=== PATIENT | male | born 1995 | race Caucasian/White ===

== ENCOUNTER 2022-12-19 03:39 | Emergency (ER) | payer BC, OTHER ==
[2022-12-19 03:51] VITALS: BP 101/69; PULSE 94; RESP 18; TEMP 98.1; BMI 28.5
[2022-12-19] MEDS ORDERED: FAMOTIDINE 20 MG/50 ML IVPB 20 MG/50 ML MG IVPB ONE ×2 (03:59→04:38)
[2022-12-19] MEDS ORDERED: LACTATED RINGERS SOLUTION 1,000 ML IV STA (03:59)
[2022-12-19] MEDS ORDERED: ACETAMINOPHEN 1000 MG/100 ML BAG IVPB ONE (03:59)
[2022-12-19] MEDS ORDERED: ONDANSETRON 4 MG/2 ML VIAL IVPUSH ONE (04:00)
[2022-12-19] MEDS ORDERED: ONDANSETRON 4 MG/2 ML VIAL ONE (04:07)
[2022-12-19] MEDS ORDERED: ACETAMINOPHEN INJECTION 100 ML IVPB ONE (04:07)
[2022-12-19 04:34] LABS: HEMATOCRIT 53.2 % (35.4-49); HEMOGLOBIN 18.8 GM/dL (11.7-16.9); MCH 29.1 pg (25.7-33.7); MCHC 35.2 g/dl (32.0-35.9); MEAN CELL VOLUME 82.5 fl (80-96); MEAN PLT VOLUME 7.5 fl (7.5-11.1); PLATELET COUNT 277 10^3/uL (134-434); RBC 6.45 M/mm3 (4.00-5.60); RDW 13.2 % (11.9-15.9); WHITE BLOOD COUNT 6.8 K/mm3 (4.0-10.0)
[2022-12-19 05:00] LABS: POTASSIUM 4.7 mmol/L (3.5-5.1)
[2022-12-19] MEDS ORDERED: LACTATED RINGERS SOLUTION 1,000 ML/1,000 ML INFUS.BAG IV SCH (05:00)
[2022-12-19 05:03] LABS: ALBUMIN 4.2 g/dl (3.4-5.0); BLOOD UREA NITROGEN 18.6 mg/dL (7-18); CALCIUM 9.5 mg/dL (8.5-10.1); MAGNESIUM 1.8 mg/dL (1.8-2.4)
[2022-12-19 05:06] LABS: CREATININE 1.3 mg/dL (0.55-1.3)
[2022-12-19 05:07] LABS: TOT PROT 7.7 g/dl (6.4-8.2)
[2022-12-19 05:08] LABS: BILIRUBIN,TOTAL 1.3 mg/dL (0.2-1)
[2022-12-19 07:21] LABS: ANISOCYTOSIS 2+; MACROCYTOSIS 0
== END 2022-12-19 05:41 | disposition home or self-care (01) ==
LOC: JER 03:39
PROC: 3E033GC Introduction of Other Therapeutic Substance into Peripheral Vein, Percutaneous Approach (ICD-10-PCS; principal; 2022-12-19)
PROC: 3E033NZ Introduction of Analgesics, Hypnotics, Sedatives into Peripheral Vein, Percutaneous Approach (ICD-10-PCS; 2022-12-19)
PROC: 3E033GC Introduction of Other Therapeutic Substance into Peripheral Vein, Percutaneous Approach (ICD-10-PCS; 2022-12-19)
PROC: 3E0337Z Introduction of Electrolytic and Water Balance Substance into Peripheral Vein, Percutaneous Approach (ICD-10-PCS; 2022-12-19)
DX: R11.2 Nausea with vomiting, unspecified (principal); R19.7 Diarrhea, unspecified
CPT/HCPCS: 36415; 80053; 83615; 83690; 83735; 85025; 93005; 93010; 99284-25

== ENCOUNTER 2025-03-12 21:23 | Emergency (ER) | payer OTHER ==
[2025-03-12 21:35] VITALS: BP 145/76; PULSE 82; RESP 18; TEMP 98.2; BMI 35.2
[2025-03-12] MEDS ORDERED: KETOROLAC TROMETHAMINE 60 MG/2 ML VIAL ONE (22:13)
[2025-03-12] MEDS ORDERED: METHOCARBAMOL 500 MG TABLET ONE (22:13)
[2025-03-12] MEDS ORDERED: LIDOCAINE 4% PATCH TP ONE (22:13)
[2025-03-12] MEDS: KETOROLAC TROMETHAMINE 30 MG/1 ML VIAL IM ONE ×2 (22:20→22:30)
[2025-03-12] MEDS: LIDOCAINE 5% TOPICAL PATCH TP ONE (22:30)
[2025-03-12] MEDS: METHOCARBAMOL 750 MG TABLET PO ONE (22:31)
[2025-03-13] MEDS ORDERED: LIDOCAINE PATCH REMOVAL MC SCH (10:00)
== END 2025-03-12 22:48 | disposition home or self-care (01) ==
LOC: JERFT 21:23
PROC: 3E0233Z Introduction of Anti-inflammatory into Muscle, Percutaneous Approach (ICD-10-PCS; principal; 2025-03-12)
DX: M54.50 Low back pain, unspecified (principal); Y99.0 Civilian activity done for income or pay
CPT/HCPCS: 99284-25